=== PATIENT | male | born 1995 ===

== ENCOUNTER 2022-06-28 17:45 | Emergency (ER) | payer SELFPAY ==
[2022-06-28 20:03] VITALS: BP 126/79
[2022-06-28] MEDS ORDERED: ONDANSETRON 4 MG ODT TAB PO ONE (20:03)
== END 2022-06-29 10:39 | disposition left against medical advice (07) ==
LOC: ED 17:45
DX: F41.0 Panic disorder [episodic paroxysmal anxiety] (principal); Z53.21 Procedure and treatment not carried out due to patient leaving prior to being seen by health care provider
CPT/HCPCS: J3490; Q0162